=== PATIENT | female | born 1975 | race Caucasian/White ===

== ENCOUNTER 2018-07-09 20:31 | Emergency (ER) | payer SELFPAY | END 2018-07-09 21:10 | disposition home or self-care (01) | LOC: MADERS 20:31 | DX: J06.9 Acute upper respiratory infection, unspecified (principal); F41.9 Anxiety disorder, unspecified; F31.9 Bipolar disorder, unspecified; F17.210 Nicotine dependence, cigarettes, uncomplicated | CPT/HCPCS: 99283 ==

== ENCOUNTER 2018-07-26 12:32 | Emergency (ER) | payer SELFPAY ==
[2018-07-26] MEDS ORDERED: Ketorolac Tromethamine 60 MG/2 ML VIAL ONE (13:52)
[2018-07-26] MEDS ORDERED: Dexamethasone 10 MG/ML VIAL ONE (13:52)
[2018-07-26] MEDS ORDERED: HYDROcodone/Acetaminophen 5/325 mg Tablet ONE (13:53)
[2018-07-26] MEDS ORDERED: Amoxicillin/Potassium Clav 875 MG TAB ONE (13:53)
[2018-07-26] MEDS ORDERED: Benzonatate 100 MG CAP ONE (13:53)
== END 2018-07-26 14:23 | disposition home or self-care (01) ==
LOC: MADERS 12:32
DX: J18.9 Pneumonia, unspecified organism (principal); F41.9 Anxiety disorder, unspecified; F31.9 Bipolar disorder, unspecified; F17.210 Nicotine dependence, cigarettes, uncomplicated
CPT/HCPCS: 87804; 96372; J1100; J1885